=== PATIENT | female | born 1980 | race Caucasian/White ===

== ENCOUNTER 2016-06-20 21:50 | Emergency (ER) | payer OTHER ==
[~2016-06-20] VITALS: Ht 162.6 cm; Wt 82.9 kg
[~2016-06-20 21:50] MED LIST: AMOXICILLIN875 MG PO; BACTROBAN CREAM15 GM TP; CIPRO250 MG PO; DOXYCYCLINE HY100 MG PO; FLONASE16 G1 BOTH NARES; GUAIFENESIN600 M1 PO; HYCODAN SYRUP480 ML PO; KEFLEX500 MG PO; OMEPRAZOLE20 M2 PO; PREDNISONE50 MG PO; PRENATAL TABLE1 EAC3 PO; PROZAC20 MG PO; TESSALON PERLE100 MG PO
[2016-06-20] MEDS ORDERED: ANTIFUNGAL15 G1 TP (22:13)
[2016-06-20 23:04] VITALS: BP 139/95
== END 2016-06-20 23:04 | disposition home or self-care (01) ==
LOC: EME 21:50
DX: B35.8 Other dermatophytoses (principal)
CPT/HCPCS: 99281; 99283